=== PATIENT | female | born 1945 | race Asian ===

== ENCOUNTER 2019-01-21 06:53 | Observation (INO) | payer MEDICARE ==
[2019-01-20 14:57] LABS: BASOPHILS % 0.4 % (0.0-1.0); EOSINOPHILS # (AUTO) 0.2 (0.0-0.4); EOSINOPHILS % 3.6 % (0.0-6.0); HEMATOCRIT 33.8 % (34.2-44.1); HEMOGLOBIN 11.2 g/dL (12.0-16.0); LYMPHOCYTES % 29.7 % (18.0-39.1); MEAN CORPUSCULAR HEMOGLOBIN 31.3 pg (28-32); MEAN CORPUSCULAR HGB CONC 33.1 g/dL (31-35); MEAN CORPUSCULAR VOLUME 94.4 fL (81-99); MONOCYTES # (AUTO) 0.5 (0.2-0.8); MONOCYTES % 7.1 % (4.4-11.3); NEUTROPHILS % 58.9 % (38.7-80.0); PLATELET COUNT 283 x10e3/uL (140-360); RED BLOOD COUNT 3.58 x10e6/uL (3.6-5.1)
--- NOTE | 2019-01-20 15:18 | Diagnostic Imaging Report ---
EXAMINATION: CHEST 2 VIEWS INDICATION: Pre-op orders. COMPARISON: None FINDINGS: TUBES and LINES: None. LUNGS: Lungs are well inflated. There is no evidence of pneumonia or pulmonary edema. PLEURA: No pleural effusion or pneumothorax. HEART AND MEDIASTINUM: The cardiomediastinal silhouette is unremarkable. BONES AND SOFT TISSUES: No acute osseous abnormality. UPPER ABDOMEN: No free air under the diaphragm. Surgical clips are present in the upper abdomen. IMPRESSION: No acute radiographic abnormality. Signed by: Dr. Joel Bowens MD on 01/20/2019 3:15 PM
[~2019-01-21] VITALS: Ht 167.6 cm; Wt 93.0 kg
[~2019-01-21 06:53] MED LIST: ASPIRIN81 MG PO; IRBESARTAN-HCT1 EACH PO; ROPIVACAINE 246.25 MG, EPINEPHRINE HCL 1:1000 1ML 0.5 MG, CLONIDINE HCL 0.08 MG, KETORO... INJ ONE; SIMVASTATIN40 MG PO; SODIUM CHLORIDE 0.9% 500ML 500 ML ONE; TRANEXAMIC ACID 1,000 MG/10 ML ML ONE; VANCOMYCIN HCL 1,000 MG ONE
[2019-01-21] MEDS ORDERED: BACITRACIN 50,000 UNIT VIAL ONE (06:54)
--- OUTSIDE RECORDS SUMMARY | 2019-01-21 06:55 | XMS REPORT ---
Author Author [facility] Address Unknown Phone Unavailable Care Team Providers Care Hand Sign Writer Name Role Phone MADHAV ARROYO Unavailable Unavailable Problems This patient has no known problems. Allergies, Adverse Reactions, Alerts This patient has no known allergies or adverse reactions. Medications This patient has no known medications. Results Test Description Test Time Test Comments Text Results Atomic Results Result Comments CHEST 2 VIEWS 2019-01-20 15:13:00 [facility] [address] [address] Patient Name: SHERYL GREER MR #: [id number] : 1945 Age/Sex: 73/F Req #: [id number] Adm Physician: Ordered by: MADHAV ARROYO MD Report #: [id number] Location: OR Room/Bed: Procedure: [id number] DX/CHEST 2 VIEWS Exam Date: 01/20/19 Exam Time: 1450 REPORT STATUS: Signed EXAMINATION: CHEST 2 VIEWS INDICATION: Pre-op or ders. COMPARISON: None FINDINGS: TUBES and LINES: None. LUNGS: Lungs are well inflated. There is no evidence of pneumonia or pulmonary edema. PLEURA: No pleural effusion or pneumothorax. HEART AND MEDIASTINUM: The cardiomediastinal silhouette is unremarkable. BONES AND SOFT TISSUES: No acute osseous abnormality. UPPER ABDOMEN: No free air under the diaphragm. Surgical clips are present in the upper abdomen. IMPRESSION: No acute radiographic abnormality. Signed by: Dr. Olga Graff MD on 01/20/2019 3:15 PM Dictated By: OLGA GRAFF MD [id number] Transcribed By: JOHN on 01/20/19 1039 COPY TO: MADHAV ARROYO MD
--- OUTSIDE RECORDS SUMMARY | 2019-01-21 06:55 | XMS REPORT | Clinical Summary ---
Author Author [facility] [place] [facility] Address Unknown Phone Unavailable Care Team Providers Care Evidence Technician Name Role Phone Sandeep Chery PCP Allergies Comments Active Allergy Reactions Severity Noted Date Sulfa (Sulfonamide Hives 09/26/2016 Antibiotics) Medications End Date Status Medication Sig Dispensed Refills Start Date Active aspirin (ECOTRIN) 81 MG Take 81 mg by 0 enteric coated tablet mouth daily. Active simvastatin (ZOCOR) 40 MG Take 40 mg by 0 tablet mouth nightly. Active calcium carbonate/vitamin Take 1 tablet 0 D3 (CALCIUM 600 WITH by mouth VITAMIN D3 ORAL) daily. Active docosahexanoic acid/epa Take 1 0 (FISH OIL ORAL) capsule by mouth daily. 07/23/2018 Discontinued valsartan-hydrochlorothia TK 1 T PO QD 0 zide (DIOVAN-HCT) 6 160-12.5 mg per tablet 07/23/2018 Discontinued melatonin 3 mg tablet Take 9 mg by 0 mouth nightly. 08/02/2018 cefdinir (OMNICEF) 300 MG Take 1 14 capsule 0 capsule capsule (300 8 mg total) by mouth 2 (two) times a day for 7 days. 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 Pelvic pain in female 02/14/2017 Left ovarian cyst 10/09/2016 Encounters Care Team Description Date Type Specialty Eun Duvall MD History of endometrial cancer (Primary Dx) 01/14/2019 Office Visit Gynecologic Oncology Gardenia Valencia MD Pharyngitis due to other organism (Primary Dx) 07/23/2018 [facility] General Internal Medicine - Encounter 07/26/2018 Eun Duvall MD Screening mammogram, encounter for (Primary Dx) 02/28/2018 Office Visit Gynecologic Oncology after 01/20/2018 Family History Medical History Relation Name Comments Brain cancer Cousin Breast cancer Sister Relation Name Status Comments Cousin Sister Social History Date Tobacco Use Types Packs/Day Years Used Never Smoker Smokeless Tobacco: Never Used Alcohol Use Drinks/Week oz/Week Comments No Sex Assigned at Date Recorded Not on file Industry Job Start Date Occupation Not on file Not on file Not on file Travel End Travel History Travel Start No recent travel history available. Last Filed Vital Signs Time Taken Vital Sign Reading 01/14/2019 10:29 AM CDT Blood Pressure 97/67 01/14/2019 10:29 AM CDT Pulse 91 07/26/2018 7:25 AM DOUBLE BACKER Temperature 36.1 C (96.9 F) 07/26/2018 7:25 AM DOUBLE BACKER Respiratory Rate 18 07/26/2018 7:25 AM DOUBLE BACKER Oxygen Saturation 96% - Inhaled Oxygen - Concentration 01/14/2019 10:29 AM CDT Weight 92.5 kg (204 lb) 01/14/2019 10:29 AM CDT Height 168.9 cm (5' 6.5") 01/14/2019 10:29 AM CDT Body Mass Index 32.43 Plan of Treatment Care Team Description Date Type Specialty Eun Duvall MD [address] [facility] [address] [place], [place] [id number] 07/15/2019 Office Visit Gynecologic Oncology Health Maintenance Due Date Last Done Comments BREAST CANCER SCREENING 1996 COLONOSCOPY SCREENING 1996 SHINGLES VACCINES (#1) 1996 65+ PNEUMOCOCCAL VACCINE 2011 (1 of 2 - PCV13) INFLUENZA VACCINE 03/13/2019 Implants Device Identifier Shelf Expiration Date Model / Serial / Lot Implanted Type Area Manufactur er 05/17/2019 10 [id number] / / [id number] Device [facility]iss [facility] Myosure Surgical N/A: Uterus HOLOGIC - [id number] Implants; INC. Implanted: 12/20/2016 (Quantity not Expanders; on file) Extenders; Surgical Wires Procedures Comments Procedure Name Priority Date/Time Associated Diagnosis PAP (REFLEX TO HPV DNA Routine 01/14/2019 History of endometrial GENOTYPING 16,18 WHEN 12:00 AM CDT cancer ASC-US) MANUAL DIFFERENTIAL Routine 07/26/2018 5:07 AM DOUBLE BACKER ESTIMATED GFR Routine 07/26/2018 5:07 AM DOUBLE BACKER BASIC METABOLIC PANEL Routine 07/26/2018 5:07 AM DOUBLE BACKER CBC WITH PLATELET AND Routine 07/26/2018 DIFFERENTIAL 5:07 AM DOUBLE BACKER ESTIMATED GFR Routine 07/25/2018 6:52 AM DOUBLE BACKER BASIC METABOLIC PANEL Routine 07/25/2018 6:52 AM DOUBLE BACKER HC COMPLETE BLD COUNT Routine 07/25/2018 W/AUTO DIFF 6:52 AM DOUBLE BACKER LACTIC ACID LEVEL, SEPSIS Timed 07/24/2018 - NOW AND REPEAT 2X EVERY 3:56 PM DOUBLE BACKER 3 HOURS URINALYSIS SCREEN AND STAT 07/24/2018 MICROSCOPY, WITH REFLEX 3:13 PM DOUBLE BACKER TO CULTURE GRAM STAIN STAT 07/24/2018 3:13 PM DOUBLE BACKER URINE CULTURE STAT 07/24/2018 3:13 PM DOUBLE BACKER STREPTOCOCCUS PNEUMONIAE Routine 07/24/2018 URINARY ANTIGEN 3:13 PM DOUBLE BACKER LACTIC ACID LEVEL, SEPSIS Timed 07/24/2018 - NOW AND REPEAT 2X EVERY 12:22 PM DOUBLE BACKER [address] SOFT TISSUE NECK W Routine 07/24/2018 CONTRAST 10:27 AM DOUBLE BACKER STREP SCREEN CULTURE Routine 07/24/2018 10:23 AM DOUBLE BACKER GROUP A STREP, RAPID Routine 07/24/2018 ANTIGEN 10:23 AM DOUBLE BACKER XR CHEST 1 VW PORTABLE STAT 07/24/2018 9:40 AM DOUBLE BACKER BLOOD CULTURE, AEROBIC & Routine 07/24/2018 ANAEROBIC 9:35 AM DOUBLE BACKER LACTIC ACID LEVEL, SEPSIS Timed 07/24/2018 - NOW AND REPEAT 2X EVERY 9:33 AM DOUBLE BACKER 3 HOURS BLOOD CULTURE, AEROBIC & Routine 07/24/2018 ANAEROBIC 9:33 AM DOUBLE BACKER CONSULT TO SEPSIS Routine 07/24/2018 Pharyngitis due to other RESPONSE TEAM 8:49 AM DOUBLE BACKER organism ESTIMATED GFR Routine 07/24/2018 5:44 AM DOUBLE BACKER MAGNESIUM LEVEL Routine 07/24/2018 5:44 AM DOUBLE BACKER BASIC METABOLIC PANEL Routine 07/24/2018 5:44 AM DOUBLE BACKER HC COMPLETE BLD COUNT Routine 07/24/2018 W/AUTO DIFF 5:44 AM DOUBLE BACKER RESPIRATORY PATHOGEN Routine 07/23/2018 PANEL 11:07 PM DOUBLE BACKER [facility] C[facility]OM Routine 03/11/2018 ORDER [facility] Routine 03/11/2018 ORDER after 01/20/2018 Results * Pap (Reflex to HPV DNA Genotyping 16,18 when ASC-US) (01/14/2019 12:00 AM CDT) Pap smear, [facility] ThinPrep Comment: DIAGNOSIS: Negative for intraepithelial lesion or malignancy ADEQUACY: Satisfactory for evaluation / Satisfactory for evaluation COMMENT: This Pap smear was screened with the assistance of the [employer] ThinPrep(TM) Imaging System and screened by a station mechanic helper. SPECIMEN SOURCE:Pap (Reflex to HPV DNA Genotyping 16,18 when ASC-US), VAGINAL CUFF CLINICAL INFORMATION: Provided Diagnosis Codes: Z85.42 Cervicovaginal cytology should be considered a screening procedure subject to false negatives and false positives. Results are more reliable when a satisfactory sample is obtained on a regular repetitive basis, and should be interpreted together with past and current clinical data. ELECTRONICALLY SIGNED BY: Screened By: CHRIS Rodriguez (ASCP) Case Electronically Signed 01/15/2019 Specimen Performing Organization Address City/State/Zipcode Phone Number [facility] * Estimated GFR (07/26/2018 5:07 AM DOUBLE BACKER) Only the most recent of 3 results within the time period is included. Estimated GFR 86 mL/min/1.73 m2 [place] Comment: [facility] G1 >=90 Normal or high G2 60-89Mildly decreased T4t30-33 Mildly to moderately decreased T3a88-46 Moderately to severely decreased G4 15-29Severely decreased G5 <15Kidney failure The eGFR was calculated using the Chronic Kidney Disease Epidemiology Collaboration (CKD-EPI) equation. Interpretation is based on recommendations of the National Kidney Foundation-Kidney Disease Outcomes Quality Initiative (NKF-KDOQI) published in 2014. Specimen Plasma specimen Performing Organization Address City/[facility]/Zipcode Phone Number [facility] DEPARTMENT [address] [place] [address] PATHOLOGY AND [facility] MEDICINE [address] * Manual differential (07/26/2018 5:07 AM DOUBLE BACKER) Manual PERFORMED [place] differential [facility] Neutrophils 70.0 (H) 36.0 - 66.0 % [facility] Lymphocytes 25.0 24.0 - 44.0 % [facility] Monocytes 3.0 0.0 - 6.0 % [facility] Eosinophils 1.0 0.0 - 6.0 % [facility] Basophils 0.0 0.0 - 1.2 % [facility] Metamyelocytes 0 0 - 1 % [facility] Promyelocytes 0 0 - 1 % [facility] Reactive 1.0 [place] lymphocytes [facility] Platelet slide Rickey adequate [place] review [facility] Anisocytosis slight [facility] Specimen Performing Organization Address City/[facility]/Zipcode Phone Number [facility] [address] [place] [address] PATHOLOGY AND GENOMIC MEDICINE [address] * CBC with platelet and differential (07/26/2018 5:07 AM DOUBLE BACKER) Only the most recent of 3 results within the time period is included. WBC 9.6 4.2 - 11.0 k/uL [facility] RBC 2.87 (L) 4.04 - 5.86 m/uL [facility] HGB 8.8 (L) 11.5 - 15.3 g/dL [facility] HCT 27.9 (L) 34.0 - 45.0 % [facility] MCV 97.2 80.0 - 98.0 fL [facility] MCH 30.7 27.0 - 34.0 pg [facility] MCHC 31.5 31.5 - 36.5 g/dL [facility] RDW - SD 45.5 37.0 - 51.0 fL [facility] MPV 9.8 7.4 - 10.4 fL [facility] Platelet count 209 150 - 400 k/uL [facility] Nucleated RBC 0.00 /100 WBC [facility] Neutrophils 70.0 (H) 36.0 - 66.0 % [facility] Lymphocytes 25.0 24.0 - 44.0 % [facility] Monocytes 3.0 0.0 - 6.0 % [facility] Eosinophils 1.0 0.0 - 6.0 % [facility] Basophils 0.0 0.0 - 1.2 % [facility] Specimen Blood Performing Organization Address City/State/Zipcode Phone Number [facility] DEPARTMENT OF [facility] [place] [address] PATHOLOGY AND GENOMIC MEDICINE [address] * Basic metabolic panel (07/26/2018 5:07 AM DOUBLE BACKER) Only the most recent of 3 results within the time period is included. Sodium 143 135 - 150 mEq/L [facility] Potassium 3.5 3.5 - 5.0 mEq/L [facility] Chloride 110 98 - 112 mEq/L [facility] CO2 21 (L) 24 - 31 mmol/L [facility] Anion gap 12@ANIO 7 - 15 mEq/L [facility] BUN 9 7 - 18 mg/dL [facility] Creatinine 0.70 0.50 - 0.90 mg/dL [facility] Glucose 106 (H) 65 - 100 mg/dL [facility] Calcium 8.6 (L) 8.8 - 10.2 mg/dL [facility] Specimen Plasma specimen Performing Organization Address City/[facility] [place] [address] PATHOLOGY AND GENOMIC MEDICINE [address] * Lactic acid level, SEPSIS - Now and repeat 2x every 3 hours (07/24/2018 3:56 PM DOUBLE BACKER) Only the most recent of 3 results within the time period is included. [facility] Lactic acid 2.1 0.5 - 2.2 mmol/L [facility] Specimen Blood Performing Organization Address [facility] [place] [address] PATHOLOGY AND [facility] MEDICINE [address] * Urinalysis screen and microscopy, with reflex to culture (07/24/2018 3:13 PM DOUBLE BACKER) Specimen site Clean catch [facility] Color, UA Yellow [facility] Appearance, UA Clear [facility] Specific 1.048 (H) 1.001 - 1.035 [place] gravity, [facility] pH, UA 6.0 5.0 - 8.5 [facility] Protein, UA 1+ (A) Negative [facility] Glucose, UA Negative Negative [facility] Ketones, UA Negative Negative [facility] Bilirubin, UA Negative Negative [facility] Blood, UA Small (A) Negative [facility] Nitrite, UA Negative Negative [facility] Urobilinogen, Negative <2.0 [facility] Leukocyte Small (A) Negative [place] esterase, UA [facility] Epithelial Few /HPF [place] cells, UA [facility] WBC, UA 3 0 - 5 /HPF [facility] RBC, UA 6 (H) 0 - 5 /HPF [facility] Bacteria, UA None seen None seen [facility] Yeast, UA None seen [facility] Yeast with None seen [place] pseudohyphae, [facility] Specimen Urine Performing Organization Address City/[facility] Phone Number [facility] DEPARTMENT OF [address] [place] [address] PATHOLOGY AND GENOMIC MEDICINE [place] [address] [address] * Streptococcus pneumoniae urinary antigen (07/24/2018 3:13 PM DOUBLE BACKER) Strep pneumo Negative for Streptococcus [place] urinary Ag pneumoniae antigen. [facility] Comment: HOSPITAL Specimen Information Specimen Source: Urine Specimen Site: Urine, clean catch Specimen Urine - Urine, clean catch Performing Organization Address [facility] Phone Number [facility] [place] [address] PATHOLOGY AND GENOMIC MEDICINE [address] * Gram stain (07/24/2018 3:13 PM DOUBLE BACKER) Pathologist [facility] Gram stain Few WBC's [place] result No organisms seen [facility] Comment: HOSPITAL Specimen Information Specimen Source: Urine Specimen Site: Clean catch Specimen Urine Performing Organization Address City/[facility] Phone Number [facility] [place] [address] PATHOLOGY AND GENOMIC MEDICINE [address] * Urine culture (07/24/2018 3:13 PM DOUBLE BACKER) Pathologist [facility] Urine culture No growth after 24 hours [place] isolate Comment: [facility] Specimen Information HOSPITAL Specimen Source: Urine Specimen Site: Clean catch Specimen Urine Performing Organization Address [facility] Cent[facility]ode Phone Number [facility] [place] [address] PATHOLOGY [place] [address] [address] * CT Soft Tissue Neck W Contrast (07/24/2018 10:27 AM DOUBLE BACKER) Specimen Narrative Performed At EXAMINATION: CT SOFT TISSUE NECK W CONTRAST HM RADIANT CLINICAL HISTORY: rule out pharyngeal abscess COMPARISON:None TECHNIQUE: Postcontrast enhanced imaging through the neck was performed from the upper chest through the skull base with coronal and sagittal reconstructed images.CT imaging was performed with iterative reconstruction technique and/or automated exposure control to reduce radiation dose. FINDINGS: There are some fluid in the retropharyngeal soft tissues. This appears simple fluid with no delineated enhancing fluid to suggest abscess at this time. There are some associated diffuse reactive hyperplastic changes of the adenoid tissue, pharyngeal lymphoid tissue and tongue base lymphoid tissue suggestive of a pharyngitis. No abscess is identified in these areas. The parapharyngeal fat is intact without stranding or fluid. The submandibular glands, parotid glands and submental regions are intact. There are some reactive lymph nodes in the neck with no gross enlarged pathologic adenopathy. Orbits are intact. Visualized skull base is intact. Osseous structures show some degenerative changes. There is no osseous erosion to suggest infection or inflammation. There is no acute fracture. Lung apices are clear. Visualized upper mediastinum is intact. Visualized paranasal sinuses shows mild scattered mucosal thickening without fluid levels. Mastoid air cells are clear. IMPRESSION: Findings show diffuse pharyngitis with inflammation and reactive hyperemia of the lymphoid tissue in the pharynx and nasopharynx. There is no discrete abscess. There is some reactive retropharyngeal edema. Recommend treatment and follow-up imaging if there is progression of symptoms and concern for new development of abscess which is not present at this time. [facility]-[id number] Procedure Note Interface, Radiology Results [facility] - 07/24/2018 10:51 AM DOUBLE BACKER EXAMINATION: CT SOFT TISSUE NECK W CONTRAST CLINICAL HISTORY: rule out pharyngeal abscess COMPARISON: None TECHNIQUE: Postcontrast enhanced imaging through the neck was performed from the upper chest through the skull base with coronal and sagittal reconstructed images. CT imaging was performed with iterative reconstruction technique and/or automated exposure control to reduce radiation dose. FINDINGS: There are some fluid in the retropharyngeal soft tissues. This appears simple fluid with no delineated enhancing fluid to suggest abscess at this time. There are some associated diffuse reactive hyperplastic changes of the adenoid tissue, pharyngeal lymphoid tissue and tongue base lymphoid tissue suggestive of a pharyngitis. No abscess is identified in these areas. The parapharyngeal fat is intact without stranding or fluid. The submandibular glands, parotid glands and submental regions are intact. There are some reactive lymph nodes in the neck with no gross enlarged pathologic adenopathy. Orbits are intact. Visualized skull base is intact. Osseous structures show some degenerative changes. There is no osseous erosion to suggest infection or inflammation. There is no acute fracture. Lung apices are clear. Visualized upper mediastinum is intact. Visualized paranasal sinuses shows mild scattered mucosal thickening without fluid levels. Mastoid air cells are clear. IMPRESSION: Findings show diffuse pharyngitis with inflammation and reactive hyperemia of the lymphoid tissue in the pharynx and nasopharynx. There is no discrete abscess. There is some reactive retropharyngeal edema. Recommend treatment and follow-up imaging if there is progression of symptoms and concern for new development of abscess which is not present at this time. [id number] Performing Organization Address City/[facility] Phone Number [facility] [address] [place] [address] * Group A strep, rapid antigen (07/24/2018 10:23 AM DOUBLE BACKER) Pathologist [facility] Group A strep, Negative for Group A [place] rapid antigen Streptococcus antigen. All [facility] result negative Group A [facility] Streptococcus antigen [facility] HOSPITAL are confirmed by culture. Comment: Specimen Information Specimen Source: Throat Specimen Site: Not otherwise specified Specimen Throat - Not otherwise specified Performing Organization Address City/[facility] Phone Number [facility] DEPARTMENT OF [address] [place] [address] PATHOLOGY AND GENOMIC MEDICINE [facility] [address] [place], [place] [id number] [place] [address] * Strep screen culture (07/24/2018 10:23 AM DOUBLE BACKER) Strep screen Streptococcus group A [place] culture isolate The performance [facility] characteristics of this [facility] on this isolate were validated by the Microbiology Laboratory at [facility].This source has not been approved by the U.S. Food and Drug Administration.The results are not intended to be used as the sole means for clinical diagnosis or patient management.The Microbiology Laboratory is authorized under the clinical Laboratory Improvement Amendments of 1988 (CLIA-88) to perform high complexity testing. (A) Comment: Specimen Information Specimen Source: Throat Specimen Site: Not otherwise specified Specimen Throat - Not otherwise specified Performing Organization Address [facility]/Zipcode Phone Number [facility] DEPARTMENT OF [address] [place] [address] PATHOLOGY AND GENOMIC MEDICINE [place] RESTORATIONIST [address] [place] [address] * XR Chest 1 Vw Portable (07/24/2018 9:40 AM DOUBLE BACKER) Specimen Narrative Performed At SINGLE VIEW CHEST, 07/23/2018 [facility] Clinical History: Leukocytosis, fever, respiratory symptoms. Technique: Single, portable AP view chest. Comparison: April 04, 2017 Impression: 1.Clear lungs. 2.No pleural effusions. 3.Cardiomegaly. Normal central vasculature. 4.Mild aortic arch calcification. 5.Intact skeleton with degenerative changes in the spine and shoulders. Procedure Note Interface, Radiology Results Incoming - 07/24/2018 9:45 AM DOUBLE BACKER SINGLE VIEW CHEST, 07/23/2018 Clinical History: Leukocytosis, fever, respiratory symptoms. Technique: Single, portable AP view chest. Comparison: April 04, 2017 Impression: 1. Clear lungs. 2. No pleural effusions. 3. Cardiomegaly. Normal central vasculature. 4. Mild aortic arch calcification. 5. Intact skeleton with degenerative changes in the spine and shoulders. Performing Organization Address [facility] [place] [address] * Blood culture, aerobic & anaerobic (07/24/2018 9:35 AM DOUBLE BACKER) Only the most recent of 2 results within the time period is included. Blood culture No growth after 5 days of [place] isolate incubation. [facility] Comment: HOSPITAL Specimen Information Specimen Source: Blood Specimen Site: Peripheral Hand Right Specimen Blood Performing Organization Address City/[facility]/Zipcode Phone Number [facility] DEPARTMENT OF [address] [place] [address] PATHOLOGY AND GENOMIC MEDICINE [place] RESTORATIONIST [address] [place] [address] * Sepsis Clinical Assessment (07/24/2018 8:49 AM DOUBLE BACKER) Narrative Performed At Herbie Woodard NP 07/24/2018 12:15 PM Patient is a 73 y/o female with PMH of HTN and uterine cancer, was a direct admit from neighbor's ER for strep throat. Per RN, patient received Zithromax and Cefepime x 1. Will initiate sepsis bundle, continue Cefepime and start on maintenance IVF.Collaborated with Dr Valencia. Note: Pt's repeat strep A rapid antigen came back negative. Ct of the neck showed diffuse pharyngitis with inflammation and reactive hyperemia of the lymphoid tissue in the pharynx and nasopharynx. There is no discrete abscess. There is some reactive retropharyngeal edema. Recommend treatment and follow-up imaging if there is progression of symptoms and concern for new development of abscess which is not present at this time. Sepsis Clinical Assessment Performed by: Herbie Woodard NP Authorized by: Herbie Woodard NP Sepsis Clinical Assessment General Assessment Information Current sepsis score:4 On comfort care?: No If score does not worsen, snooze alerts until:07/24/2018 21:49 DOUBLE BACKER SIRS Criteria Temperature > 38.3 C (101 F) due to acute condition Heart rate > 90 bpm due to acute condition WBC > 12 K/mcL due to acute condition Sepsis Assessment Clinical suspicion of infection? Yes Time of suspicion of infection:07/24/2018 8:49 PM Clinical suspicion of sepsis?: Yes Sepsis staging:Sepsis Sepsis protocol started?Yes Where did the protocol start?:Inpatient Started Clinical disposition:Remain in room Suspected Type/Source of Infection Suspected Type of Infection: Bacterial Suspected Source of Infection: HEENT Focus Exam Sepsis focus exam performed at 07/24/2018 11:00 AM Cardiopulmonary Exam Heart: Regular rate & rhythm Left Lung: Clear Right Lung: Clear Capillary Refill Capillary refill rate: Brisk, < 3 s Peripheral Pulses Left dorsalis pedis:Normal Right dorsalis pedis:Normal Left posterial tibial: Normal Right posterial tibial:Normal Left radial:Normal Right radial:Normal Skin Exam Skin exam: Skin color normal Sepsis Related Vitals Heart rate: 99 Temperature: (!) 102.5 F Respiratory rate: 18 Blood pressure: 130/76 Altered mental status: WBC (k/uL) Date Value 07/24/2018 18.1 (H)05/01/2017 8.93 Weight-Based Fluid Bolus Calculation The recommended weight-based bolus volume: 2,775 mL (dosing weight) Please refer to the MAR for actual med/fluid administrations. * Magnesium level (07/24/2018 5:44 AM DOUBLE BACKER) [facility] Magnesium 1.70 1.60 - 2.40 mg/dL [facility] Specimen Plasma specimen Performing Organization Address City/[facility]/Zipcode Phone Number [facility] DEPARTMENT OF [address] [place] [address] PATHOLOGY AND GENOMIC MEDICINE [facility] [address] [place] [id number] [place] [address] * Respiratory pathogen panel (07/23/2018 11:07 PM DOUBLE BACKER) Respiratory Negative for all pathogens [place] pathogen panel tested: RESTORATIONIST Negative for Adenovirus [facility] Negative for Coronavirus HKU1 Negative for Coronavirus NL63 Negative for Coronavirus 229E Negative for Coronavirus OC43 Negative for Human Metapneumovirus Negative for Rhinovirus/Enterovirus Negative for Influenza A Negative for Influenza A/H1 Negative for Influenza A/H3 Negative for Influenza A/H1-2009 Negative for Influenza B Negative for Parainfluenza Virus 1 Negative for Parainfluenza Virus 2 Negative for Parainfluenza Virus 3 Negative for Parainfluenza Virus 4 Negative for Respiratory Syncytial Virus Negative for Bordetella pertussis Negative for Chlamydophila pneumoniae Negative for Mycoplasma pneumoniae This real-time PCR assay detects the presence of nucleic acids (RNA or DNA) for the respiratory pathogens listed. A result of "Not-detected" does not exclude the possibility of the presence of one or more pathogens at concentrations less than the detectable limits of the assay. Comment: Specimen Information Specimen Source: Nares Specimen Site: Right Specimen Nares - Right Performing Organization Address City/[facility]/Zipcode Phone Number [facility] DEPARTMENT OF [address] [place] [address] PATHOLOGY AND GENOMIC MEDICINE [address] * [facility] lab papsmear custom order (03/11/2018) Only the most recent of 2 results within the time period is included. Narrative Performed At after 01/20/2018 Insurance Type Payer Benefit Subscriber ID Effective Phone Address Plan / Dates Group HMO [employer]IG[employer] HE[employer]SPRING CIGNA xxxxxxxxxxx 2018-P [facility]ALTHSPRI [facility] ADV Advance Directives Patient has advance care planning documents on file. For more information, jcarlos mata contact: Waldo Song [address] [place] [address]
[2019-01-21] MEDS ORDERED: GABAPENTIN 300 MG CAP ONE (08:00)
[2019-01-21] MEDS ORDERED: DEXAMETHASONE SOD PHOS 10 MG/1 ML VIAL ONE (08:00)
[2019-01-21] MEDS ORDERED: CELECOXIB 200 MG CAP ONE (08:00)
[2019-01-21] MEDS ORDERED: CEFAZOLIN SOD 2 GM/D5W 50ML 50 ML IV ONE (08:01)
[2019-01-21] MEDS ORDERED: CIPRO500 MG PO (08:37)
[2019-01-21] MEDS ORDERED: PYRIDIUM100 MG PO (08:37)
[2019-01-21 08:56] LABS: CALCIUM 9.3 mg/dL (8.4-10.2); CREATININE, SERUM 1.01 mg/dL (0.57-1.11)
[2019-01-21] MEDS: SODIUM CHLORIDE 0.9% 1000ML 1,000 ML IV SCH ×2 (11:05→20:51)
[2019-01-21] MEDS ORDERED: ACETAMINOPHEN 650 MG SUPP PR PRN (11:15)
[2019-01-21] MEDS ORDERED: HYDROCODONE/APAP 5MG-325MG TAB PO PRN (11:15)
[2019-01-21] MEDS ORDERED: ONDANSETRON HCL INJ 2MG/ML 2ML 2 MG/ML VIAL IV PRN (11:15)
[2019-01-21] MEDS ORDERED: DOCUSATE SODIUM 100 MG CAP PO PRN (11:15)
[2019-01-21] MEDS ORDERED: DIPHENHYDRAMINE HCL INJ 50 MG/ML VIAL IM/IV PRN (11:15)
[2019-01-21] MEDS ORDERED: KETOROLAC TROMETHAMINE 30 MG/ML VIAL IV PRN (11:15)
[2019-01-21] MEDS ORDERED: PROMETHAZINE HCL (IM) 25 MG/ML VIAL INJ PRN (11:15)
--- OUTSIDE RECORDS SUMMARY | 2019-01-21 11:33 | XMS REPORT | Clinical Summary ---
Author Author [facility] Address Unknown Phone Unavailable Care Team Providers Care Winder Operator Name Role Phone Sandeep Chery PCP Allergies [...] due to other organism (Primary Dx) 07/23/2018 [facility] General Internal Medicine - Encounter 07/26/2018 [...] AM CDT Pulse 91 07/26/2018 7:25 AM PYROTECHNICS PRESS TENDER Temperature 36.1 C (96.9 F) 07/26/2018 7:25 AM PYROTECHNICS PRESS TENDER Respiratory Rate 18 07/26/2018 7:25 AM PYROTECHNICS PRESS TENDER Oxygen Saturation 96% - Inhaled Oxygen - Concentration 01/14/2019 10:29 AM CDT Weight 92.5 kg (204 lb) 01/14/2019 10:29 AM CDT Height 168.9 cm (5' 6.5") 01/14/2019 10:29 AM CDT Body Mass Index 32.43 Plan of Treatment Care Team Description Date Type Specialty Eun Duvall MD [address] [facility] [address] [place], [place] [id number] 07/15/2019 Office Visit Gynecologic Oncology Health Maintenance Due Date Last Done Comments BREAST CANCER SCREENING 1996 COLONOSCOPY SCREENING 1996 SHINGLES VACCINES (#1) 1996 65+ PNEUMOCOCCAL VACCINE 2011 (1 of 2 - PCV13) INFLUENZA VACCINE 03/13/2019 Implants Device Identifier Shelf Expiration Date Model / Serial / Lot Implanted Type Area Manufactur er 05/17/2019 10 [id number] / / [id number] Device [facility] Surgical N/A: Uterus HOLOGIC - [id number] Implants; INC. Implanted: 12/20/2016 (Quantity not Expanders; on file) Extenders; Surgical Wires Procedures Comments Procedure Name Priority Date/Time Associated Diagnosis PAP (REFLEX TO HPV DNA Routine 01/14/2019 History of endometrial GENOTYPING 16,18 WHEN 12:00 AM CDT cancer ASC-US) MANUAL DIFFERENTIAL Routine 07/26/2018 5:07 AM PYROTECHNICS PRESS TENDER ESTIMATED GFR Routine 07/26/2018 5:07 AM PYROTECHNICS PRESS TENDER BASIC METABOLIC PANEL Routine 07/26/2018 5:07 AM PYROTECHNICS PRESS TENDER CBC WITH PLATELET AND Routine 07/26/2018 DIFFERENTIAL 5:07 AM PYROTECHNICS PRESS TENDER ESTIMATED GFR Routine 07/25/2018 6:52 AM PYROTECHNICS PRESS TENDER BASIC METABOLIC PANEL Routine 07/25/2018 6:52 AM PYROTECHNICS PRESS TENDER HC COMPLETE BLD COUNT Routine 07/25/2018 W/AUTO DIFF 6:52 AM PYROTECHNICS PRESS TENDER LACTIC ACID LEVEL, SEPSIS Timed 07/24/2018 - NOW AND REPEAT 2X EVERY 3:56 PM PYROTECHNICS PRESS TENDER 3 HOURS URINALYSIS SCREEN AND STAT 07/24/2018 MICROSCOPY, WITH REFLEX 3:13 PM PYROTECHNICS PRESS TENDER TO CULTURE GRAM STAIN STAT 07/24/2018 3:13 PM PYROTECHNICS PRESS TENDER URINE CULTURE STAT 07/24/2018 3:13 PM PYROTECHNICS PRESS TENDER STREPTOCOCCUS PNEUMONIAE Routine 07/24/2018 URINARY ANTIGEN 3:13 PM PYROTECHNICS PRESS TENDER LACTIC ACID LEVEL, SEPSIS Timed 07/24/2018 - NOW AND REPEAT 2X EVERY 12:22 PM PYROTECHNICS PRESS TENDER [address] SOFT TISSUE NECK W Routine 07/24/2018 CONTRAST 10:27 AM PYROTECHNICS PRESS TENDER STREP SCREEN CULTURE Routine 07/24/2018 10:23 AM PYROTECHNICS PRESS TENDER GROUP A STREP, RAPID Routine 07/24/2018 ANTIGEN 10:23 AM PYROTECHNICS PRESS TENDER XR CHEST 1 VW PORTABLE STAT 07/24/2018 9:40 AM PYROTECHNICS PRESS TENDER BLOOD CULTURE, AEROBIC & Routine 07/24/2018 ANAEROBIC 9:35 AM PYROTECHNICS PRESS TENDER LACTIC ACID LEVEL, SEPSIS Timed 07/24/2018 - NOW AND REPEAT 2X EVERY 9:33 AM PYROTECHNICS PRESS TENDER 3 HOURS BLOOD CULTURE, AEROBIC & Routine 07/24/2018 ANAEROBIC 9:33 AM PYROTECHNICS PRESS TENDER CONSULT TO SEPSIS Routine 07/24/2018 Pharyngitis due to other RESPONSE TEAM 8:49 AM PYROTECHNICS PRESS TENDER organism ESTIMATED GFR Routine 07/24/2018 5:44 AM PYROTECHNICS PRESS TENDER MAGNESIUM LEVEL Routine 07/24/2018 5:44 AM PYROTECHNICS PRESS TENDER BASIC METABOLIC PANEL Routine 07/24/2018 5:44 AM PYROTECHNICS PRESS TENDER HC COMPLETE BLD COUNT Routine 07/24/2018 W/AUTO DIFF 5:44 AM PYROTECHNICS PRESS TENDER RESPIRATORY PATHOGEN Routine 07/23/2018 PANEL 11:07 PM PYROTECHNICS PRESS TENDER [facility] CUSTOM Routine 03/11/2018 ORDER [facility] CUSTOM Routine 03/11/2018 ORDER after 01/20/2018 Results * Pap (Reflex to HPV DNA Genotyping 16,18 when ASC-US) (01/14/2019 12:00 AM CDT) Pap smear, [facility] BIOREF ThinPrep Comment: DIAGNOSIS: Negative for intraepithelial lesion or malignancy ADEQUACY: Satisfactory for evaluation / Satisfactory for evaluation COMMENT: This Pap smear was screened with the assistance of the [employer] ThinPrep(TM) Imaging System and screened by a wood turning lathe operator. SPECIMEN SOURCE:Pap (Reflex to HPV DNA Genotyping [...] BIOREF * Estimated GFR (07/26/2018 5:07 AM PYROTECHNICS PRESS TENDER) Only the most recent of 3 results within the time period is included. Estimated GFR 86 mL/min/1.73 m2 [facility] Comment: [facility] G1 >=90 Normal or high G2 60-89Mildly decreased [id number] Mildly to moderately decreased [id number] Moderately to severely decreased G4 15-29Severely decreased G5 <15Kidney failure The eGFR was calculated using the Chronic Kidney Disease Epidemiology Collaboration (CKD-EPI) equation. Interpretation is based on recommendations of the National Kidney Foundation-Kidney Disease Outcomes Quality Initiative (NKF-KDOQI) published in 2014. Specimen Plasma specimen Performing Organization Address City/[facility]/Zipcode Phone Number [facility] DEPARTMENT [address] [place] [address] PATHOLOGY AND [facility] MEDICINE [address] * Manual differential (07/26/2018 5:07 AM PYROTECHNICS PRESS TENDER) Manual PERFORMED [facility] differential [facility] Neutrophils 70.0 (H) 36.0 - 66.0 % [facility] Lymphocytes 25.0 24.0 - 44.0 % [facility] Monocytes 3.0 0.0 - 6.0 % [facility] Eosinophils 1.0 0.0 - 6.0 % [facility] Basophils 0.0 0.0 - 1.2 % [facility] Metamyelocytes 0 0 - 1 % [facility] Promyelocytes 0 0 - 1 % [facility] Reactive 1.0 [facility] lymphocytes [facility] Platelet slide Rickey adequate [facility] review [facility] Anisocytosis slight [facility] Specimen Performing Organization Address City/[facility]/Zipcode Phone Number [facility] [address] [place] [address] PATHOLOGY AND GENOMIC MEDICINE [address] * CBC with platelet and differential (07/26/2018 5:07 AM PYROTECHNICS PRESS TENDER) Only the most recent of 3 results within the time period is included. WBC 9.6 4.2 - 11.0 k/uL [facility] RBC 2.87 (L) 4.04 - 5.86 m/uL [facility] HGB 8.8 (L) 11.5 - 15.3 g/dL [facility] HCT 27.9 (L) 34.0 - 45.0 % [facility] MCV 97.2 80.0 - 98.0 fL [facility] MCH 30.7 27.0 - 34.0 pg [facility] MCHC 31.5 31.5 - 36.5 g/dL [facility] RDW - SD 45.5 37.0 - 51.0 fL [facility] MPV 9.8 7.4 - 10.4 fL [facility] Platelet count 209 150 - 400 k/uL [facility] Nucleated RBC 0.00 /100 WBC [facility] Neutrophils 70.0 (H) 36.0 - 66.0 % [facility] Lymphocytes 25.0 24.0 - 44.0 % [facility] Monocytes 3.0 0.0 - 6.0 % [facility] Eosinophils 1.0 0.0 - 6.0 % [facility] Basophils 0.0 0.0 - 1.2 % [facility] Specimen Blood Performing Organization Address City/State/Zipcode Phone Number [facility] DEPARTMENT OF [facility] [place] [address] PATHOLOGY AND GENOMIC MEDICINE [address] * Basic metabolic panel (07/26/2018 5:07 AM PYROTECHNICS PRESS TENDER) Only the most recent of 3 results within the time period is included. Sodium 143 135 - 150 mEq/L [facility] Potassium 3.5 3.5 - 5.0 mEq/L [facility] Chloride 110 98 - 112 mEq/L [facility] CO2 21 (L) 24 - 31 mmol/L [facility] Anion gap 12@ANIO 7 - 15 mEq/L [facility] BUN 9 7 - 18 mg/dL [facility] Creatinine 0.70 0.50 - 0.90 mg/dL [facility] Glucose 106 (H) 65 - 100 mg/dL [facility] Calcium 8.6 (L) 8.8 - 10.2 mg/dL [facility] Specimen Plasma specimen Performing Organization Address City/[facility] [place] [address] PATHOLOGY AND GENOMIC MEDICINE [address] * Lactic acid level, SEPSIS - Now and repeat 2x every 3 hours (07/24/2018 3:56 PM PYROTECHNICS PRESS TENDER) Only the most recent of 3 results within the time period is included. [facility] Lactic acid 2.1 0.5 - 2.2 mmol/L [facility] Specimen Blood Performing Organization Address [facility] [place] [address] PATHOLOGY AND [facility] MEDICINE [address] * Urinalysis screen and microscopy, with reflex to culture (07/24/2018 3:13 PM PYROTECHNICS PRESS TENDER) Specimen site Clean catch [facility] Color, UA Yellow [facility] Appearance, UA Clear [facility] Specific 1.048 (H) 1.001 - 1.035 [facility] gravity, [facility] pH, UA 6.0 5.0 - 8.5 [facility] Protein, UA 1+ (A) Negative [facility] Glucose, UA Negative Negative [facility] Ketones, UA Negative Negative [facility] Bilirubin, UA Negative Negative [facility] Blood, UA Small (A) Negative [facility] Nitrite, UA Negative Negative [facility] Urobilinogen, Negative <2.0 [facility] Leukocyte Small (A) Negative [facility] esterase, UA [facility] Epithelial Few /HPF [facility] cells, UA [facility] WBC, UA 3 0 - 5 /HPF [facility] RBC, UA 6 (H) 0 - 5 /HPF [facility] Bacteria, UA None seen None seen [facility] Yeast, UA None seen [facility] Yeast with None seen [facility] pseudohyphae, [facility] Specimen Urine Performing Organization Address City/[facility] Cent[facility]ode Phone Number [facility] DEPARTMENT OF [address] [place] [address] PATHOLOGY AND GENOMIC MEDICINE [place] [address] [address] * Streptococcus pneumoniae urinary antigen (07/24/2018 3:13 PM PYROTECHNICS PRESS TENDER) Strep pneumo Negative for Streptococcus [facility] urinary Ag pneumoniae antigen. [facility] Comment: HOSPITAL Specimen Information Specimen Source: Urine Specimen Site: Urine, clean catch Specimen Urine - Urine, clean catch Performing Organization Address [facility] Phone Number [facility] [place] [address] PATHOLOGY AND GENOMIC MEDICINE [address] * Gram stain (07/24/2018 3:13 PM PYROTECHNICS PRESS TENDER) Pathologist [facility] Gram stain Few WBC's [facility] result No organisms seen [facility] Comment: HOSPITAL Specimen Information Specimen Source: Urine Specimen Site: Clean catch Specimen Urine Performing Organization Address City/[facility] Phone Number [facility] [place] [address] PATHOLOGY AND GENOMIC MEDICINE [address] * Urine culture (07/24/2018 3:13 PM PYROTECHNICS PRESS TENDER) Pathologist [facility] Urine culture No growth after 24 hours [facility] isolate Comment: [facility] Specimen Information HOSPITAL Specimen Source: Urine Specimen Site: Clean catch Specimen Urine Performing Organization Address [facility] Cent[facility]ode Phone Number [facility] [place] [place] [address] PATHOLOGY [place] [address] HOS[address] * CT Soft Tissue Neck W Contrast (07/24/2018 10:27 AM PYROTECHNICS PRESS TENDER) Specimen Narrative Performed At EXAMINATION: CT SOFT [...] which is not present at this time. [facility]-[id number] Procedure Note Interface, Radiology Results [facility] - 07/24/2018 10:51 AM PYROTECHNICS PRESS TENDER EXAMINATION: CT SOFT TISSUE NECK W CONTRAST [...] which is not present at this time. [id number] Performing Organization Address City/[facility] Phone Number [facility] [address] [place] [address] * Group A strep, rapid antigen (07/24/2018 10:23 AM PYROTECHNICS PRESS TENDER) Pathologist [facility] Group A strep, Negative for Group A [facility] rapid antigen Streptococcus antigen. All [facility] result negative Group A [facility] Streptococcus antigen [facility] are confirmed by culture. Comment: Specimen Information Specimen Source: Throat Specimen Site: Not otherwise specified Specimen Throat - Not otherwise specified Performing Organization Address City/[facility] Phone Number [facility] DEPARTMENT OF [address] [place] [address] PATHOLOGY AND GENOMIC MEDICINE [facility] [address] [place], [place] [id number] [place] [address] * Strep screen culture (07/24/2018 10:23 AM PYROTECHNICS PRESS TENDER) Strep screen Streptococcus group A [facility] culture isolate The performance [facility] characteristics [facility] on this isolate were validated by the Microbiology Laboratory at [facility].This source has not been approved by the [...] - Not otherwise specified Performing Organization Address [facility]/Zipcode Phone Number [facility] DEPARTMENT OF [address] [place] [address] PATHOLOGY AND GENOMIC MEDICINE [facility] [address] [place] [address] * XR Chest 1 Vw Portable (07/24/2018 9:40 AM PYROTECHNICS PRESS TENDER) Specimen Narrative Performed At SINGLE VIEW CHEST, 07/23/2018 [facility] Clinical History: Leukocytosis, fever, respiratory symptoms. Technique: Single, portable AP view chest. Comparison: April 04, 2017 Impression: 1.Clear lungs. 2.No pleural effusions. 3.Cardiomegaly. Normal central vasculature. 4.Mild aortic arch calcification. 5.Intact skeleton with degenerative changes in the spine and shoulders. Procedure Note Interface, Radiology Results Incoming - 07/24/2018 9:45 AM PYROTECHNICS PRESS TENDER SINGLE VIEW CHEST, 07/23/2018 Clinical History: Leukocytosis, fever, respiratory symptoms. Technique: Single, portable AP view chest. Comparison: April 04, 2017 Impression: 1. Clear lungs. 2. No pleural effusions. 3. Cardiomegaly. Normal central vasculature. 4. Mild aortic arch calcification. 5. Intact skeleton with degenerative changes in the spine and shoulders. Performing Organization Address [facility] [place] [address] * Blood culture, aerobic & anaerobic (07/24/2018 9:35 AM PYROTECHNICS PRESS TENDER) Only the most recent of 2 results within the time period is included. Blood culture No growth after 5 days of [facility]Y isolate incubation. [facility] Comment: HOSPITAL Specimen Information Specimen Source: Blood Specimen Site: Peripheral Hand Right Specimen Blood Performing Organization Address City/[facility]/Zipcode Phone Number [facility] DEPARTMENT OF [address] [place] [address] PATHOLOGY AND GENOMIC MEDICINE [facility] [address] [place] [address] * Sepsis Clinical Assessment (07/24/2018 8:49 AM PYROTECHNICS PRESS TENDER) Narrative Performed At Herbie Woodard NP 07/24/2018 [...] does not worsen, snooze alerts until:07/24/2018 21:49 PYROTECHNICS PRESS TENDER SIRS Criteria Temperature > 38.3 C (101 [...] administrations. * Magnesium level (07/24/2018 5:44 AM PYROTECHNICS PRESS TENDER) [facility] Magnesium 1.70 1.60 - 2.40 mg/dL [facility] Specimen Plasma specimen Performing Organization Address City/[facility]/Zipcode Phone Number [facility] DEPARTMENT OF [address] [place] [address] PATHOLOGY AND GENOMIC MEDICINE [facility] [address] [place] [phone] [place] [address] * Respiratory pathogen panel (07/23/2018 11:07 PM PYROTECHNICS PRESS TENDER) Respiratory Negative for all pathogens [facility] pathogen panel tested: [facility] Negative for Adenovirus [facility] Negative for Coronavirus HKU1 Negative for Coronavirus [...] Specimen Nares - Right Performing Organization Address City/[facility]/Zipcode Phone Number [facility] DEPARTMENT OF [address] [place] [address] PATHOLOGY AND GENOMIC MEDICINE [address] * [facility] lab papsmear custom order (03/11/2018) Only the most recent of 2 results within the time period is included. Narrative Performed At after 01/20/2018 Insurance Type Payer Benefit Subscriber ID Effective Phone Address Plan / Dates Group HMO [employer] HE[employer]ING CIGNA xxxxxxxxxxx 2018-P HEALTHSPRI resent [facility] ADV Advance Directives Patient has advance care planning documents on file. For more information, jcarlos mata contact: Waldo Song [address] [place] [address]
--- NOTE | 2019-01-21 11:39 | Diagnostic Imaging Report ---
Right knee radiographs-2 views History: Postoperative. Findings: Status post right total total knee arthroplasty and patellar resurfacing with prosthetic components in anatomic alignment. Overlying subcutaneous emphysema and surgical skin dwight are present. No evidence of acute fracture. IMPRESSION: Status post right total knee arthroplasty in anatomic position. Signed by: Dr. Joel Bowens MD on 01/21/2019 11:35 AM
[2019-01-21] MEDS ORDERED: MEPERIDINE HCL INJ 25 MG/ML VIAL ONE (11:44)
[2019-01-21] MEDS ORDERED: FENTANYL CITRATE/PF 100MCG/2 ML INJ ONE ×2 (11:57→13:01)
[2019-01-21] MEDS: ACETAMINOPHEN 1000 MG/100 ML IV SCH ×3 (12:00→23:33)
[2019-01-21] MEDS ORDERED: LIDOCAINE 2% /EPINEPHRINE 20 ML SDV INJ ONE (12:30)
[2019-01-21] MEDS ORDERED: ROPIVACAINE 0.5% 5 MG/ML 30 ML SDV ONE (12:30)
[2019-01-21] MEDS ORDERED: MIDAZOLAM HCL 2 MG/2 ML VIAL ONE (13:01)
--- NOTE | 2019-01-21 13:55 | Operative Report ---
DATE OF PROCEDURE: 01/21/2019 SURGEON: Dilan Momin MD RN TRANSITION: Remy Nickerson PA-C. PREOPERATIVE DIAGNOSIS: Osteoarthritis of right knee. POSTOPERATIVE DIAGNOSIS: Osteoarthritis of right knee. PROCEDURE: Right total knee arthroplasty. INDICATIONS: The patient is a 73-year-old woman, who has severe arthritic changes in her right knee. She has failed conservative management and would like to proceed with a right total knee replacement. The risks and benefits of the procedure have been discussed. She states she understands and wishes to proceed. She tentatively is planning to have the left side done after a few months. PROCEDURE IN DETAIL: The patient was brought to the operating room and placed under general anesthetic. She received prophylactic antibiotics, tranexamic acid, and a regional block in the holding area. Her right lower extremity was prepped and draped in a sterile manner. A preoperative time-out was performed. The extremity was exsanguinated and a proximal tourniquet was inflated to 300 mmHg. An anterior incision with a medial parapatellar arthrotomy was performed. Blood-tinged synovial fluid was removed from the joint. Soft tissue releases were performed to bring the knee up into flexion with the patella everted. The cruciate ligaments were sacrificed. A Chery and Nephew posterior stabilized Legion knee system was used throughout the case. Marginal osteophytes and meniscal remnants were excised. An extramedullary cutting guide was used to resect the proximal tibia. The tibial baseplate was a size #5. The central fin punch was impacted and attention was directed towards the distal femur. An intramedullary cutting guide was used to resect the distal femur in 5 degrees of valgus and rotation referencing off a combination of landmarks including Whitesides line, the epicondylar axis, and the posterior condyles. The femoral component was a size #6. The anterior, posterior, and notch cuts were made. Trial reductions were performed. A 9 mm posterior stabilized tibial insert provided appropriate soft tissue balancing in full extension and 90 degrees of flexion. The patella was then resurfaced with a 32 mm x 9 mm patellar button. The thickness was checked before and afterwards and was right around 22 mm. A lateral retinacular release was necessary for appropriate patellar tracking. The trial implants were then all removed. A 100 mL premixed pericapsular LC injection was placed into the surrounding soft tissue. The knee was thoroughly irrigated with a shower tip pulsatile lavage. All bone cuts have been irrigated with a spray mixture of polymyxin and vancomycin spray. The components were cemented into place using a single mix of Palacos cement preloaded with antibiotics. Care was taken to remove extravasated cement. The wound was further irrigated while the cement cured. 500 mg of vancomycin powder were then sprinkled into the joint. The arthrotomy was carefully closed with interrupted #1 Ethibond stitches. The knee was put through flexion and extension to assess patellar tracking and to ensure a secure closure of the arthrotomy. The skin was then closed with subcuticular Vicryl and dwight. A sterile Aquacel bandage and an Piyush wrap were applied. The patient was extubated and transported to the recovery room in stable condition. Blood loss was minimal. All needle and sponge counts were correct. Dilan Momin MD DR/MARBIN /[id number]
[2019-01-21 14:31] VITALS: BP 127/69
--- NOTE | 2019-01-21 14:41 | NUR ---
Received patient from PACU s/p Right TKA, PMH of HLD, HTN, VSS and no c/o pains, no resp distress. IV line in place and fluids running as ordered. On 2L O2 NC protocol only, WBAT per orders, call light within reach, in room with patient, will monitor.
[2019-01-21 14:46] VITALS: BP 127/69
[2019-01-21] MEDS: CEFAZOLIN SOD 1 GM/NS 50ML 50 ML IV SCH ×2 (16:00→20:52)
[2019-01-21 16:30] VITALS: BP 114/68
[2019-01-21] MEDS: ASPIRIN 325 MG TAB PO SCH (16:55)
[2019-01-21] MEDS: CELECOXIB 100 MG CAP PO SCH (16:55)
--- NOTE | 2019-01-21 18:35 | NUR ---
Patient alert and responsive, CPM in place at this time, APAP IV running and tolerated diner, no N/V, call light within reach, will monitor.
[2019-01-21] MEDS ORDERED: DEXAMETHASONE SOD PHOS INJ 4 MG/ML VIAL ONE (18:57)
[2019-01-21] MEDS ORDERED: ACETAMINOPHEN 1000 MG/100 ML IV ONE (18:57)
[2019-01-21] MEDS ORDERED: PROPOFOL IV EMULSION 10 MG/ML 20 ML VIAL ONE (18:57)
[2019-01-21] MEDS ORDERED: ONDANSETRON HCL INJ 2MG/ML 2ML 2 MG/ML VIAL ONE (18:57)
[2019-01-21] MEDS ORDERED: SEVOFLURANE INHAL SOLN 250 ML PEN BTL ONE (18:57)
[2019-01-21] MEDS ORDERED: LIDOCAINE HCL 2% LOCAL INJ 5 ML SDV VIAL INJ ONE (18:57)
[2019-01-21 19:30] VITALS: BP 149/83
[2019-01-21] MEDS ORDERED: ZOLPIDEM TARTRATE 5 MG TAB PO PRN (21:00)
[2019-01-21 22:11] VITALS: BP 149/83
[2019-01-22] VITALS (7 sets, daily range): BP systolic 114–141; BP diastolic 59–72
[2019-01-22] MEDS: ACETAMINOPHEN 1000 MG/100 ML IV SCH (05:20)
[2019-01-22 06:07] LABS: HEMATOCRIT 29.8 % (34.2-44.1); HEMOGLOBIN 9.4 g/dL (12.0-16.0)
[2019-01-22] MEDS: CEFAZOLIN SOD 1 GM/NS 50ML 50 ML IV SCH (06:10)
[2019-01-22] MEDS: SODIUM CHLORIDE 0.9% 1000ML 1,000 ML IV SCH (06:12)
--- NOTE | 2019-01-22 06:29 | Consultation ---
DATE OF CONSULTATION: REASON FOR CONSULTATION: Postop medical management. HISTORY OF PRESENT ILLNESS: The patient is a 73-year-old lady, status post total knee arthroplasty on the right. She is doing well postoperatively. She denies any chest pain, fever, chills, nausea, vomiting, headache, shortness of breath, or dizziness. REVIEW OF SYSTEMS: Has mild pain in the right knee, it is well controlled. PAST MEDICAL HISTORY: Hypertension and hyperlipidemia. MEDICATIONS: See MAR. ALLERGIES: SULFA. SOCIAL HISTORY: Nonsmoker. Nondrinker. . FAMILY HISTORY: Diabetes, hypertension, and CVA. PHYSICAL EXAMINATION: VITAL SIGNS: Temperature 96.0, pulse 67, blood pressure 114/59, and sats 100% on room air. GENERAL: No apparent distress, lying in bed. NECK: Supple. No lymphadenopathy. CARDIOVASCULAR: Regular rate and rhythm. LUNGS: Clear to auscultation bilaterally. ABDOMEN: Good bowel sounds. Soft, nontender. EXTREMITIES: No clubbing or cyanosis. Right knee is in a brace. NEUROLOGICAL: Nonfocal. ASSESSMENT AND PLAN: 1. Anemia. Check a CBC. 2. Right knee pain. Continue with postoperative care. 3. Hypertension. Continue to monitor blood pressure. 4. Hyperlipidemia. Continue with her cholesterol medicines at discharge. Please see hospital chart for full details. MD BINH Purcell/MARBIN /[id number]
[2019-01-22] MEDS: CELECOXIB 100 MG CAP PO SCH (07:57)
[2019-01-22] MEDS: ASPIRIN 325 MG TAB PO SCH (07:57)
[2019-01-22] MEDS ORDERED: NORCO 7.5-3251 EACH PO (10:16)
[2019-01-22] MEDS ORDERED: ASPIRIN325 MG PO (10:30)
[2019-01-22] MEDS ORDERED: ACETAMINOPHEN 1000 MG/100 ML IV PRN (11:15)
[2019-01-22] MEDS: HYDROCODONE/APAP 7.5MG-325MG 1 EA TAB PO PRN ×2 (11:25→16:31)
[2019-01-22] MEDS ORDERED: ONDANSETRON HCL 4 MG ORAL DISINTEGRATING TAB PO PRN (13:15)
--- NOTE | 2019-01-22 16:35 | NUR ---
Pt was with CPM for 2hrs today. Resting in room, at bedside. C/o pain to R knee, dressing CDI. SCD and DUTCH hose in place. IV to R hand, no redness or swelling to insertion site. A&O x3. Resp WNL. Able to ambulate with walker and assistance by staff. Up in chair today with PT, tolerated well, complained of slight pain during movement. Call light within reach, bed in lowest position.
== END 2019-01-22 17:16 | disposition home health service (06) ==
LOC: OR 06:53 → PACU V 11:07 → MED/SURG 14:06
PROVIDERS: ADMIT Specialist; ATTEND Specialist
DX: M17.0 Bilateral primary osteoarthritis of knee (principal); M19.012 Primary osteoarthritis, left shoulder; M19.011 Primary osteoarthritis, right shoulder; I10 Essential (primary) hypertension; E78.5 Hyperlipidemia, unspecified; D64.9 Anemia, unspecified
CPT/HCPCS: 27447; 36415 ×3; 71046; 73560; 80048; 85014; 85018; 85025; 86850; 86900; 86920; 97116; 97162; 97530 ×2; C1713; G0378 ×2; J0131 ×2; J0171; J0690 ×3; J1100 ×2; J1885; J2001 ×2; J2175; J2250; J2405; J2704; J2795; J3370; J7030 ×2; J7040

== ENCOUNTER 2021-03-07 05:23 | Observation (INO) | payer MEDICARE ==
[~2021-03-07] VITALS: Ht 167.6 cm; Wt 92.1 kg
[~2021-03-07 05:23] MED LIST changes: +ASPIRIN325 MG PO; +CIPRO500 MG PO; +CRESTOR10 MG PO; +IBUPROFEN200 MG PO; +NORCO 7.5-3251 EACH PO; +PYRIDIUM100 MG PO; -ROPIVACAINE 246.25 MG, EPINEPHRINE HCL 1:1000 1ML 0.5 MG, CLONIDINE HCL 0.08 MG, KETORO... INJ ONE; -SODIUM CHLORIDE 0.9% 500ML 500 ML ONE; -TRANEXAMIC ACID 1,000 MG/10 ML ML ONE; +ULTRAM50 MG PO; -VANCOMYCIN HCL 1,000 MG ONE
[2021-03-07] MEDS ORDERED: GABAPENTIN 300 MG CAP ONE (05:40)
[2021-03-07] MEDS ORDERED: CELECOXIB 200 MG CAP ONE (05:40)
[2021-03-07] MEDS ORDERED: DEXAMETHASONE SOD PHOS 10 MG/1 ML VIAL ONE (05:40)
[2021-03-07] MEDS ORDERED: SODIUM CHLORIDE 0.9% 50ML 100 ML ONE (05:41)
[2021-03-07] MEDS ORDERED: BENADRYL25 M1 PO (05:57)
[2021-03-07] MEDS ORDERED: SODIUM CHLORIDE 0.9% 500ML 500 ML ONE (06:36)
[2021-03-07] MEDS ORDERED: Vancomycin IV 1,000 MG ONE (06:36)
[2021-03-07] MEDS ORDERED: TRANEXAMIC ACID 1,000 MG/10 ML ML ONE (06:36)
[2021-03-07] MEDS ORDERED: MIDAZOLAM HCL 2 MG/2 ML VIAL ONE (06:54)
[2021-03-07] MEDS ORDERED: FENTANYL CITRATE/PF 100MCG/2 ML INJ ONE ×3 (06:54→13:18)
[2021-03-07] MEDS ORDERED: ROPIVACAINE 246.25 MG, EPINEPHRINE HCL 1:1000 1ML 0.5 MG, CLONIDINE HCL 0.08 MG, KETORO... INJ ONE ×5 (08:00)
[2021-03-07] MEDS: SODIUM CHLORIDE 0.9% 1000ML 1,000 ML IV SCH ×2 (08:15→18:15)
[2021-03-07] MEDS ORDERED: DIPHENHYDRAMINE HCL INJ 50 MG/ML VIAL IV PRN (08:15)
[2021-03-07] MEDS ORDERED: ONDANSETRON HCL INJ 2MG/ML 2ML 2 MG/ML VIAL IV PRN (08:15)
[2021-03-07] MEDS ORDERED: DOCUSATE SODIUM 100 MG CAP PO PRN (08:15)
[2021-03-07] MEDS ORDERED: ACETAMINOPHEN 650 MG SUPP PR PRN (08:15)
[2021-03-07] MEDS ORDERED: KETOROLAC TROMETHAMINE 30 MG/ML VIAL IV PRN (08:15)
[2021-03-07] MEDS ORDERED: MORPHINE SULFATE INJ 2 MG/ML SYR ONE (08:37)
[2021-03-07] MEDS ORDERED: HYDROMORPHONE 1MG/1ML INJ ONE (08:48)
[2021-03-07] MEDS: CELECOXIB 100 MG CAP PO SCH ×2 (09:00→17:00)
[2021-03-07] MEDS: ASPIRIN 325 MG TAB PO SCH ×2 (09:00→17:00)
[2021-03-07] MEDS ORDERED: ACETAMINOPHEN 1000 MG/100 ML 100 ML IV ONE (09:28)
[2021-03-07 11:44] VITALS: BP 106/57
[2021-03-07] MEDS ORDERED: ACETAMINOPHEN 1000 MG/100 ML IV PRN (12:00)
[2021-03-07] MEDS ORDERED: ONDANSETRON HCL INJ 2MG/ML 2ML 2 MG/ML VIAL ONE (12:26)
[2021-03-07] MEDS ORDERED: EPHEDRINE SULFATE INJ 50 MG/ML VIAL ONE (12:26)
[2021-03-07] MEDS ORDERED: PROPOFOL IV EMULSION 10 MG/ML 20 ML VIAL ONE (12:26)
[2021-03-07] MEDS ORDERED: POVIDONE IODINE 0.05% 0.05 % ML PO ONE (12:26)
[2021-03-07] MEDS ORDERED: LIDOCAINE HCL 2% LOCAL INJ 5 ML SDV VIAL INJ ONE (12:26)
[2021-03-07] MEDS ORDERED: SEVOFLURANE INHAL SOLN 250 ML PEN BTL ONE (12:26)
[2021-03-07] MEDS ORDERED: ROPIVACAINE 0.5% 5 MG/ML 30 ML SDV ONE (12:56)
[2021-03-07] MEDS: Cefazolin 1 GM in SODIUM CHLORIDE 0.9% 50ML 50 ML IV SCH ×2 (14:13→21:49)
[2021-03-07 15:00] VITALS: BP 106/57
[2021-03-07 15:49] VITALS: BP 111/61
[2021-03-07 20:00] VITALS: BP 106/49
[2021-03-07] MEDS ORDERED: ZOLPIDEM TARTRATE 5 MG TAB PO PRN (21:00)
[2021-03-07] MEDS: HYDROCODONE/APAP 5MG-325MG TAB PO PRN (22:10)
[2021-03-07] MEDS ORDERED: SIMVASTATIN 40 MG TAB PO SCH (22:45)
[2021-03-07] MEDS ORDERED: HYDROCHLOROTHIAZIDE 25 MG TAB PO SCH (22:57)
[2021-03-07] MEDS ORDERED: IRBESARTAN 150 MG TAB PO SCH (22:57)
[2021-03-08] VITALS: BP 100/48
[2021-03-08 04:00] VITALS: BP 103/54
[2021-03-08] MEDS: SODIUM CHLORIDE 0.9% 1000ML 1,000 ML IV SCH (04:15)
[2021-03-08] MEDS: HYDROCODONE/APAP 7.5MG-325MG 1 EA TAB PO PRN ×2 (05:22→11:49)
[2021-03-08] MEDS: Cefazolin 1 GM in SODIUM CHLORIDE 0.9% 50ML 50 ML IV SCH (05:22)
[2021-03-08 05:39] LABS: HEMOGLOBIN 9.9 g/dL (12.0-16.0)
[2021-03-08 07:09] VITALS: BP 97/50
[2021-03-08 07:10] VITALS: BP 97/50
[2021-03-08] MEDS: HYDROCODONE/APAP 5MG-325MG TAB PO PRN (08:40)
[2021-03-08] MEDS ORDERED: ONDANSETRON HCL 4 MG ORAL DISINTEGRATING TAB PO PRN (08:45)
[2021-03-08] MEDS: CELECOXIB 100 MG CAP PO SCH (08:46)
[2021-03-08] MEDS: ASPIRIN 325 MG TAB PO SCH (08:46)
[2021-03-08 11:03] VITALS: BP 106/57
[2021-03-08] MEDS ORDERED: CELECOXIB 200 MG CAP PO SCH (17:00)
== END 2021-03-08 13:49 | disposition home or self-care (01) ==
LOC: OR 05:23 → PACU V 08:09 → MED/SURG 10:05
PROVIDERS: ADMIT Specialist; ATTEND Specialist
DX: M17.0 Bilateral primary osteoarthritis of knee (principal); D64.9 Anemia, unspecified; E78.5 Hyperlipidemia, unspecified; Z96.651 Presence of right artificial knee joint; Z01.818 Encounter for other preprocedural examination
CPT/HCPCS: 27447; 36415; 73560; 85014; 85018; 86850; 86900; 86920; 97110; 97116 ×2; 97161; 97530; C1713 ×4; C1776; G0378 ×2; J0131; J0171; J0690 ×2; J1100; J1170; J1200; J1885 ×2; J2001; J2250; J2270; J2405; J2704; J2795; J3010; J3370; J7030; J7040

== ENCOUNTER → 2023-07-10 | Day surgery (SDC) | payer MEDICARE ==
[~2023-07-10] MED LIST changes: +BENADRYL25 M1 PO; +CEFAZOLIN SODIUM 2 GM ONE; +CELECOXIB 200 MG CAP ONE; +DEXAMETHASONE SOD PHOS 10 MG/1 ML VIAL ONE; +DEXAMETHASONE SOD PHOS INJ 4 MG/ML SDV ONE; +DEXMEDETOMIDINE HCL 200 MCG/2 ML VIAL ONE; +GABAPENTIN 300 MG CAP ONE; +LACTATED RINGER'S 1,000 ML ONE; +LIDOCAINE 2%/ EPINEPHRINE 20ML MDV ONE; +LIDOCAINE HCL 2% LOCAL INJ 5 ML SDV VIAL INJ ONE; +NEURONTIN300 MG PO; +ONDANSETRON HCL INJ 2MG/ML 2ML 2 MG/ML VIAL ONE; +PHENYLEPHRINE HCL 1% 10 MG/ML VIAL ONE; +PROPOFOL IV EMULSION 10 MG/ML 20 ML VIAL ONE; +ROCURONIUM BROMIDE 10 MG/ML 5ML VIAL IV ONE; +ROPIVACAINE 246.25 MG, EPINEPHRINE HCL 1:1000 1ML 0.5 MG, CLONIDINE HCL 0.08 MG, KETORO... INJ ONE; +SEVOFLURANE INHAL SOLN 250 ML PEN BTL ONE; +SODIUM CHLORIDE 0.9% 500ML 500 ML ONE; +SUGAMMADEX SODIUM 200 MG/2 ML VIAL IV ONE; +TRANEXAMIC ACID 20 ML ONE; +VITAMIN C1000 MG PO; +VITAMIN D31250 MCG; +VITAMIN E400 UNI1 PO; +Vancomycin IV 500 MG ONE
[2023-07-10 06:51] LABS: BASOPHILS # (AUTO) 0.1 (0.0-0.1); BASOPHILS % 0.6 % (0.0-1.0); EOSINOPHILS # (AUTO) 0.2 (0.0-0.4); HEMATOCRIT 31.7 % (34.2-44.1); LYMPHOCYTES # (AUTO) 1.8 (1.0-3.2); LYMPHOCYTES % 22.1 % (18.0-39.1); MEAN CORPUSCULAR HEMOGLOBIN 29.8 pg (28-32); MEAN CORPUSCULAR HGB CONC 31.5 g/dL (31-35); MEAN CORPUSCULAR VOLUME 94.3 fL (81-99); MONOCYTES # (AUTO) 0.7 (0.2-0.8); MONOCYTES % 8.7 % (4.4-11.3); NEUTROPHILS # (AUTO) 5.3 (2.1-6.9); NEUTROPHILS % 65.2 % (38.7-80.0); PLATELET COUNT 321 x10e3/uL (140-360); RED BLOOD COUNT 3.36 x10e6/uL (3.6-5.1); RED CELL DISTRIBUTION WIDTH 13.3 % (11.7-14.4); WHITE BLOOD COUNT 8.06 x10e3/uL (4.8-10.8)
[2023-07-10 07:05] LABS: ANION GAP 15.4 mmol/L (8-16); CALCIUM 9.8 mg/dL (8.4-10.2); CREATININE, SERUM 1.15 mg/dL (0.57-1.11); POTASSIUM 3.4 mmol/L (3.5-5.1)
[2023-07-10 10:41] LABS: EOSINOPHILS % (MANUAL) 1 % (0-7); LYMPHOCYTES % (MANUAL) 28 % (19-48); MONOCYTES % (MANUAL) 5 % (3.4-9.0); NEUTROPHILS % (MANUAL) 64 % (40-74); REACTIVE LYMPHOCYTES 2
[2023-07-10 10:43] LABS: PLATELET ESTIMATE ADEQUATE; PLATELET MORPHOLOGY COMMENT NORMAL
[2023-07-10 10:44] LABS: HYPOCHROMASIA SLIGHT; RBC MORPHOLOGY COMMENT ABNORMAL
[2023-07-10 12:10] VITALS: BP 121/76; PULSE 78; RESP 18; O2SAT 97
== END | disposition home or self-care (01) ==
LOC: OR 05:57
PROVIDERS: ATTEND Specialist
DX: M19.012 Primary osteoarthritis, left shoulder (principal); I10 Essential (primary) hypertension; E78.5 Hyperlipidemia, unspecified; Z96.651 Presence of right artificial knee joint; Z79.899 Other long term (current) drug therapy; Z79.82 Long term (current) use of aspirin; Z88.2 Allergy status to sulfonamides; Z88.5 Allergy status to narcotic agent
CPT/HCPCS: 23470; 36415; 73020; 80048; 85025; 86850; 86900; C1776 ×3; J0171; J1100 ×2; J1885; J2001 ×2; J2371; J2405; J2704; J2795; J3370; J7040; J7121